=== PATIENT | female | born 1965 | race Two or more races ===

== ENCOUNTER 2017-09-06 20:30 | Inpatient (IN) | payer SELFPAY ==
[2017-09-06] MEDS ORDERED: NS 1,000 ML IV ONE (20:39)
--- NOTE | 2017-09-06 20:39 | EDPHY ---
H & P Stated Complaint: RLQ PAIN NAUSEA FEVER 3 HRS Time Seen by Provider: 09/06/17 20:38 HPI/ROS: CHIEF COMPLAINT: Acute right flank and abdominal pain HISTORY OF PRESENT ILLNESS: The patient presents the ED with a 3 hr history of severe acute right flank and abdominal pain. The patient reports she has a history of nephrolithiasis. She also has a prior history of cholecystectomy. She denies any antecedent fever, dysuria, hematuria or fever. The patient reports her pain is severe in nature. She denies additional past medical history. The pain does radiate into her right groin. REVIEW OF SYSTEMS: A comprehensive 10 point review of systems is otherwise negative aside from elements mentioned in the history of present illness. Source: Patient, Family - Personal History LMP (Females 10-55): 8-14 Days Ago Current Tetanus/Diphtheria Vaccine: Yes Current Tetanus Diphtheria and Acellular Pertussis (TDAP): Yes - Medical/Surgical History Hx Asthma: No Hx Chronic Respiratory Disease: No Hx Diabetes: No Hx Cardiac Disease: No Hx Renal Disease: No Hx Cirrhosis: No Hx Alcoholism: No Hx HIV/AIDS: No Hx Splenectomy or Spleen Trauma: No Other PMH: cholecystectomy - Social History Smoking Status: Never smoked - Physical Exam Exam: General Appearance: Alert, appears uncomfortable Eyes: Pupils equal and round no pallor or injection ENT, Mouth: Mucous membranes moist Respiratory: There are no retractions, lungs are clear to auscultation Cardiovascular: Regular rate and rhythm Gastrointestinal: Tenderness to palpation in the right lower quadrant, right CVA tenderness present Neurological: A&O, normal motor function, normal sensory exam, normal cranial nerves Skin: Warm and dry, no rashes Musculoskeletal: Neck is supple nontender Extremities: symmetrical, full range of motion Constitutional: Initial Vital Signs Temperature (C) 37.2 C 09/06/17 20:31 Heart Rate 99 09/06/17 20:31 Respiratory Rate 18 09/06/17 20:31 Blood Pressure 149/99 H 09/06/17 20:31 O2 Sat (%) 96 09/06/17 20:31 O2 Delivery Mode Room Air Allergies/Adverse Reactions: No Known Allergies Allergy (Unverified 09/06/17 20:33) Home Medications: Medication Instructions Recorded NK [No Known Home Meds] 09/06/17 Medical Decision Making - Diagnostics Imaging Results: Imaging Impressions Abdomen/Pelvis CT 09/06/17 20:45 Impression: 1. A 5-cm diameter calculus is seen associated with the right kidney, presumably at the ureteropelvic junction, and resulting in obstructive uropathy accounting for the patient's symptomatology. Additional imaging to be considered, as clinically directed. 2. Other abnormalities of the right kidney are described above. Results called and discussed with Danial Rome M.D., on September 06, 2017 at 2129. ED Course/Re-evaluation: The patient presents the ED with acute right flank pain. She also complains of some right-sided abdominal pain. The patient was noted to have tenderness to palpation in the right lower quadrant and right flank. The patient has had a prior cholecystectomy. The patient had an IV established. She received a L of normal saline. She received IV morphine and Toradol. CT scan demonstrates a large stone in the right renal pelvis possibly at the [facility]. Dr. Trace Lehman reports the patient has a normal appearing appendix. I did consult with Dr. Devlin for who is currently in the operating room who were reviewed the patient's CT scan when he is finished. I re-evaluated the patient at 11:00 p.m.. She is still complaining of flank pain. She will be admitted to the hospitalist service this evening. Differential Diagnosis: Differential diagnosis considered includes urinary tract infection, pyelonephritis, nephrolithiasis, ureterolithiasis, appendicitis - Data Points Laboratory Results: Laboratory Results 09/06/17 20:50 09/06/17 20:50 09/06/17 09/06/17 09/06/17 20:50 20:50 20:50 WBC 9.21 10^3/uL 10^3/uL (3.80-9.50) RBC 4.61 10^6/uL 10^6/uL (4.18-5.33) Hgb 14.4 g/dL g/dL (12.6-16.3) Hct 40.5 % % (38.0-47.0) MCV 87.9 fL fL (81.5-99.8) MCH 31.2 pg pg (27.9-34.1) MCHC 35.6 g/dL g/dL (32.4-36.7) RDW 12.8 % % (11.5-15.2) Plt Count 274 10^3/uL 10^3/uL (150-400) MPV 9.1 fL fL (8.7-11.7) Neut % (Auto) 79.2 % H % (39.3-74.2) Lymph % (Auto) 18.9 % % (15.0-45.0) Summers % (Auto) 0.2 % L % (4.5-13.0) Eos % (Auto) 1.1 % % (0.6-7.6) Baso % (Auto) 0.3 % % (0.3-1.7) Nucleat RBC Rel Count 0.0 % % (0.0-0.2) Absolute Neuts (auto) 7.29 10^3/uL H 10^3/uL (1.70-6.50) Absolute Lymphs (auto) 1.74 10^3/uL 10^3/uL (1.00-3.00) Absolute Monos (auto) 0.02 10^3/uL L 10^3/uL (0.30-0.80) Absolute Eos (auto) 0.10 10^3/uL 10^3/uL (0.03-0.40) Absolute Basos (auto) 0.03 10^3/uL 10^3/uL (0.02-0.10) Absolute Nucleated RBC 0.00 10^3/uL 10^3/uL (0-0.01) Immature Gran % 0.3 % % (0.0-1.1) Immature Gran # 0.03 10^3/uL 10^3/uL (0.00-0.10) Sodium 138 mEq/L mEq/L (135-145) Potassium 3.7 mEq/L mEq/L (3.5-5.2) Chloride 103 mEq/L mEq/L (97-110) Carbon Dioxide 22 mEq/l mEq/l (22-31) Anion Gap 13 mEq/L mEq/L (8-16) BUN 23 mg/dL mg/dL (7-23) Creatinine 0.9 mg/dL mg/dL (0.6-1.0) Estimated GFR > 60 Glucose 88 mg/dL mg/dL (70-100) Calcium 9.5 mg/dL mg/dL (8.5-10.4) Urine Color PALE YELLOW Urine Appearance CLEAR Urine pH 5.0 (5.0-7.5) Ur Specific [place] 1.014 (1.002-1.030) Urine Protein NEGATIVE (NEGATIVE) Urine Ketones NEGATIVE (NEGATIVE) Urine Blood 3+ H (NEGATIVE) Urine Nitrate NEGATIVE (NEGATIVE) Urine Bilirubin NEGATIVE (NEGATIVE) Urine Urobilinogen NEGATIVE EU EU (0.2-1.0) Ur Leukocyte Esterase NEGATIVE (NEGATIVE) Urine RBC 10-15 /hpf H /hpf (0-3) Urine WBC 1-3 /hpf /hpf (0-3) Ur Epithelial Cells TRACE /lpf /lpf (NONE-1+) Urine Mucus TRACE /lpf /lpf (NONE-1+) Urine Glucose NEGATIVE (NEGATIVE) Medications Given: Discontinued Medications Sodium Chloride (Ns) 1,000 mls @ 0 mls/hr IV EDNOW ONE; Wide Open PRN Reason: Protocol Stop: 09/06/17 20:40 Last Admin: 09/06/17 21:21 Dose: 1,000 mls Ketorolac Tromethamine (Toradol) 30 mg IVP EDNOW ONE Stop: 09/06/17 21:48 Last Admin: 09/06/17 21:53 Dose: 30 mg Morphine Sulfate (Morphine) 4 mg IVP EDNOW ONE Stop: 09/06/17 21:24 Last Admin: 09/06/17 21:27 Dose: 4 mg Departure - Departure Referrals: NONE *PRIMARY CARE P,. [Primary Care Provider] - As per Instructions
[2017-09-06 21:05] LABS: PLATELET COUNT 274 10^3/uL (150-400)
[2017-09-06] MEDS ORDERED: KETOROLAC 30 MG/1 ML SDV IVP ONE (21:47)
[2017-09-06] MEDS ORDERED: ONDANSETRON DISINTEGRATING 4 MG TAB PO PRN (23:05)
[2017-09-06] MEDS ORDERED: HYDROmorphONE/DILAUDID 1 MG/ML INJ IVP PRN (23:05)
[2017-09-06] MEDS ORDERED: HYDROmorphONE/DILAUDID 1 MG/ML INJ ONE (23:21)
[2017-09-06] MEDS ORDERED: ONDANSETRON 4 MG/2 ML VIAL ONE (23:24)
[2017-09-06] MEDS: ONDANSETRON 4 MG/2 ML VIAL IVP PRN (23:25)
[2017-09-07] MEDS: NS 1,000 ML IV SCH ×3 (00:31→13:03)
--- NOTE | 2017-09-07 00:33 | PDGENHP ---
History and Physical - Chief Complaint Flank pain - History of Present Illness 52 yo F w/ hx of nephrolithiasis presents with R flank pain. Patient states that the pain developed around 3 PM and has been unrelenting since. She also feels subjective fevers but denies dysuria or kumar hematuria. She has had similar pain in the past but never this severe in nature. In the ED CT scan was notable for 5 cm calculus. Urology was consulted and patient is being admitted for pain control and likely surgical intervention. History Information - Allergies/Home Medication List Allergies/Adverse Reactions: No Known Allergies Allergy (Unverified 09/06/17 20:33) Home Medications: NK [No Known Home Meds] 09/06/17 [Last Taken Unknown] I have personally reviewed and updated: family history, medical history - Past Medical History Additional medical history: Nephrolithiasis - Surgical History Reports: cholecystectomy - Family History Positive for: hypertension - Social History Smoking Status: Never smoked Review of Systems Review of Systems: ROS: 10pt was reviewed & negative except for what was stated in HPI & below Physical Exam Physical Exam: Temp Pulse Resp BP Pulse Ox 36.8 C 100 20 114/61 96 09/06/17 23:58 09/06/17 23:58 09/06/17 23:58 09/06/17 23:58 09/06/17 23:58 O2 (L/minute) 2 Constitutional: appears nourished, uncomfortable Eyes: PERRL, EOMI Ears, Nose, Mouth, Throat: moist mucous membranes, no oral mucosal ulcers Cardiovascular: regular rate and rhythym, no murmur, rub, or gallop Respiratory: no respiratory distress, clear to auscultation Gastrointestinal: normoactive bowel sounds, tenderness (RLQ) Genitourinary: other (R flank pain) Skin: warm, normal color Musculoskeletal: full muscle strength, no muscle tenderness Neurologic: AAOx3, CN II-XII Intact Lab Data & Imaging Review 09/06/17 20:50 09/06/17 20:50 WBC 9.21 10^3/uL (3.80-9.50) 09/06/17 20:50 RBC 4.61 10^6/uL (4.18-5.33) 09/06/17 20:50 Hgb 14.4 g/dL (12.6-16.3) 09/06/17 20:50 Hct 40.5 % (38.0-47.0) 09/06/17 20:50 MCV 87.9 fL (81.5-99.8) 09/06/17 20:50 MCH 31.2 pg (27.9-34.1) 09/06/17 20:50 MCHC 35.6 g/dL (32.4-36.7) 09/06/17 20:50 RDW 12.8 % (11.5-15.2) 09/06/17 20:50 Plt Count 274 10^3/uL (150-400) 09/06/17 20:50 MPV 9.1 fL (8.7-11.7) 09/06/17 20:50 Neut % (Auto) 79.2 % (39.3-74.2) H 09/06/17 20:50 Lymph % (Auto) 18.9 % (15.0-45.0) 09/06/17 20:50 [place] % (Auto) 0.2 % (4.5-13.0) L 09/06/17 20:50 Eos % (Auto) 1.1 % (0.6-7.6) 09/06/17 20:50 Baso % (Auto) 0.3 % (0.3-1.7) 09/06/17 20:50 Nucleat RBC Rel Count 0.0 % (0.0-0.2) 09/06/17 20:50 Absolute Neuts (auto) 7.29 10^3/uL (1.70-6.50) H 09/06/17 20:50 Absolute Lymphs (auto) 1.74 10^3/uL (1.00-3.00) 09/06/17 20:50 Absolute Monos (auto) 0.02 10^3/uL (0.30-0.80) L 09/06/17 20:50 Absolute Eos (auto) 0.10 10^3/uL (0.03-0.40) 09/06/17 20:50 Absolute Basos (auto) 0.03 10^3/uL (0.02-0.10) 09/06/17 20:50 Absolute Nucleated RBC 0.00 10^3/uL (0-0.01) 09/06/17 20:50 Immature Gran % 0.3 % (0.0-1.1) 09/06/17 20:50 Immature Gran # 0.03 10^3/uL (0.00-0.10) 09/06/17 20:50 Sodium 138 mEq/L (135-145) 09/06/17 20:50 Potassium 3.7 mEq/L (3.5-5.2) 09/06/17 20:50 Chloride 103 mEq/L (97-110) 09/06/17 20:50 Carbon Dioxide 22 mEq/l (22-31) 09/06/17 20:50 Anion Gap 13 mEq/L (8-16) 09/06/17 20:50 BUN 23 mg/dL (7-23) 09/06/17 20:50 Creatinine 0.9 mg/dL (0.6-1.0) 09/06/17 20:50 Estimated GFR > 60 09/06/17 20:50 Glucose 88 mg/dL (70-100) 09/06/17 20:50 Calcium 9.5 mg/dL (8.5-10.4) 09/06/17 20:50 Urine Color PALE YELLOW 09/06/17 20:50 Urine Appearance CLEAR 09/06/17 20:50 Urine pH 5.0 (5.0-7.5) 09/06/17 20:50 Ur Specific [place] 1.014 (1.002-1.030) 09/06/17 20:50 Urine Protein NEGATIVE (NEGATIVE) 09/06/17 20:50 Urine Ketones NEGATIVE (NEGATIVE) 09/06/17 20:50 Urine Blood 3+ (NEGATIVE) H 09/06/17 20:50 Urine Nitrate NEGATIVE (NEGATIVE) 09/06/17 20:50 Urine Bilirubin NEGATIVE (NEGATIVE) 09/06/17 20:50 Urine Urobilinogen NEGATIVE EU (0.2-1.0) 09/06/17 20:50 Ur Leukocyte Esterase NEGATIVE (NEGATIVE) 09/06/17 20:50 Urine RBC 10-15 /hpf (0-3) H 09/06/17 20:50 Urine WBC 1-3 /hpf (0-3) 09/06/17 20:50 Ur Epithelial Cells TRACE /lpf (NONE-1+) 09/06/17 20:50 Urine Mucus TRACE /lpf (NONE-1+) 09/06/17 20:50 Urine Glucose NEGATIVE (NEGATIVE) 09/06/17 20:50 Imaging Review: Imaging Impressions Abdomen/Pelvis CT 09/06/17 20:45 Impression: 1. A 5-cm diameter calculus is seen associated with the right kidney, presumably at the ureteropelvic junction, and resulting in obstructive uropathy accounting for the patient's symptomatology. Additional imaging to be considered, as clinically directed. 2. Other abnormalities of the right kidney are described above. Results called and discussed with Danial Rome M.D., on September 06, 2017 at 2129. Assessment & Plan Assessment: 52 yo F presents with nephrolithiasis and obstructive uropathy. Plan: 1. Nephrolithiasis - Per CT, 5-cm diameter calculus is seen associated with the right kidney, presumably at the ureteropelvic junction, and resulting in obstructive uropathy accounting for the patient's symptomatology. Patient complaining of subjective fevers but no objective data consistent with infection thus far. - mIVF, pain control - Will observe off of antibiotics, low threshold to initiate if signs of infection arise - Urology consulted, appreciate assistance - Will maintain NPO pending surgical evaluation Diet - NPO Code - Full Ppx - SCDs Dispo - Admit to observation status
[2017-09-07] MEDS: HYDROmorphONE/DILAUDID 1 MG/ML INJ IVP PRN ×2 (01:03→05:36)
[2017-09-07 06:06] LABS: PLATELET COUNT 244 10^3/uL (150-400)
[2017-09-07] MEDS: ACETAMINOPHEN 325 MG TAB PO PRN (07:45)
[2017-09-07] MEDS: HYDROmorphONE/DILAUDID 2 MG TAB PO PRN ×2 (07:46→15:11)
[2017-09-07] MEDS ORDERED: FLU VACC QS 2017-18 (3YR+)/PF 0.5 ML SYR (FLUARIX QUAD) IM ONE (11:05)
[2017-09-07] MEDS ORDERED: KETOROLAC 15 MG/1 ML SDV IVP ONE (12:47)
--- NOTE | 2017-09-07 12:51 | HOSPPROG ---
Hospitalist Progress Note Assessment/Plan: 52-year-old female admitted with right flank pain and found to have a 5 mm right ureteral vesicle junction stone. She is continuing to have pain. Urine shows red cells without white cells and she is afebrile. She increased her white count from 9000-01200 without a fever which is unexplained. She continues to have abdominal pain. Case has been discussed with Urology, , who will see the patient. -Right renal nephrolithiasis at the ureterovesical junction. Pain has been persistent. Patient placed on Flomax Toradol -leukocytosis which is unexplained without a fever: The CBC will be repeated and the patient was given 1 g of Rocephin along with the urine culture and blood cultures. She does not meet sepsis criteria -pain control Plan: Urology will see later today. Subjective: Reports persistent pain in the right flank. No fever cough shortness of breath or chest pain Objective: Vital Signs Temp Pulse Resp BP Pulse Ox 37.3 C 99 20 111/74 96 09/07/17 12:00 09/07/17 12:00 09/07/17 12:00 09/07/17 12:00 09/07/17 12:00 Laboratory Results 09/07/17 05:16 09/07/17 05:16 09/06/17 09/07/17 09/08/17 05:59 05:59 05:59 Intake Total 1774 96 Output Total 400 350 Balance 1374 -254 - Time Spent With Patient Time Spent with Patient: greater than 35 minutes Time Spent with Patient: Greater than 35 minutes spent on this patients care, greater than 50% of time spent counseling, educating, and coordinating care regarding the above mentioned plan. - Pending Discharge Pending Discharge Within 24 Hours: Yes Pending Discharge Date: 09/13/17 Pending Discharge Time: 11:00 - Physical Exam Constitutional: no apparent distress Eyes: PERRL, anicteric sclera Ears, Nose, Mouth, Throat: moist mucous membranes, hearing normal Cardiovascular: regular rate and rhythym, no murmur, rub, or gallop Respiratory: no respiratory distress, no rales or rhonchi, clear to auscultation Gastrointestinal: normoactive bowel sounds, other (Right flank pain with right- sided abdominal pain on deep palpation without rebound or palpable mass) Genitourinary: no bladder fullness Skin: warm Musculoskeletal: full muscle strength Neurologic: AAOx3, CN II-XII Intact Psychiatric: interacting appropriately
[2017-09-07] MEDS: TAMSULOSIN HCL 0.4 MG CAP PO SCH (12:54)
--- NOTE | 2017-09-07 16:08 | ASMTCMCOM ---
CM Note CM Note Notes: Pt in significant pain from 5mm ureter stone, waiting for urology consult. Anticipate pt will be independent once resolved and dc home w/family support. CM available for any changes. DC Plan: Home independent Date Signed: 09/07/2017 04:07 PM Electronically Signed By:Linnea Juárez RN
[2017-09-07 16:40] LABS: PLATELET COUNT 210 10^3/uL (150-400)
[2017-09-07] MEDS: KETOROLAC 15 MG/1 ML SDV IVP SCH (17:09)
[2017-09-07] MEDS ORDERED: MIDAZOLAM 2 MG/2 ML VIAL IVP PRN (17:51)
[2017-09-07] MEDS ORDERED: MEPERIDINE 25 MG/ML SYR IVP PRN (17:51)
[2017-09-07] MEDS ORDERED: PROTAMINE SULFATE 50 MG/5 ML VIAL IVP PRN (17:51)
[2017-09-07] MEDS ORDERED: FLUMAZENIL 0.5 MG/5 ML MDV IVP PRN (17:51)
[2017-09-07] MEDS ORDERED: GLUCAGON HCL 1 MG VIAL IVP PRN (17:51)
[2017-09-07] MEDS ORDERED: ALTEPLASE 2 MG VIAL IVP PRN (17:51)
[2017-09-07] MEDS ORDERED: HEPARIN 10,000 UNIT/10 ML MDV IVP PRN (17:51)
[2017-09-07] MEDS ORDERED: NALOXONE HCL 0.4 MG/ML INJ IVP PRN (17:51)
[2017-09-07] MEDS ORDERED: NS 1,000 ML IV SCH (18:00)
[2017-09-07 18:18] LABS: INR 1.46 (0.83-1.16); PROTIME(PATIENT) 17.9 SEC (12.0-15.0)
[2017-09-07] MEDS ORDERED: CIPROFLOXACIN 400 MG/DEXTROSE 200 ML IV ONE (18:30)
[2017-09-07] MEDS ORDERED: fentaNYL 100 MCG/2 ML INJ ONE ×2 (19:20→21:39)
[2017-09-07] MEDS ORDERED: MIDAZOLAM 2 MG/2 ML VIAL ONE (19:20)
--- NOTE | 2017-09-07 19:21 | PDPROPOC ---
Sedation Plan of Care Sedation Plan of Care: vital signs stable, mental status noted, patient educated of risks, benefits, alternatives, patient can tolerate sedation ASA Classification: ASA 3 Planned drugs: fentanyl, midazolam Mallampati Score: Class 2 Mallampati Reference Image: Patient passed 3-3-2 rule?: Yes
[2017-09-07] MEDS ORDERED: IOPAMIDOL (ISOVUE-300) 100 ML BTL ONE (19:37)
[2017-09-07] MEDS ORDERED: MEPERIDINE 25 MG/ML SYR ONE (20:55)
--- NOTE | 2017-09-07 21:25 | PDRADPN ---
Radiology Procedure Note Date of Procedure: 09/07/17 Radiologist: Jorge Monsivais Pre-op Diagnosis: Obstructing stone Post-op Diagnosis: Same Indication: Obstructing stone, elevated WBC count, concern for developing pyonephrosis Procedure: Right nephrostomy tube placement Finding(s): See dictated report Inf/Abcess present in the surg proc area at time of surgery?: Yes Depth: Organ Space (Retroperitoneal) EBL: Minimal Complications: No immediate Drains: Nephrostomy (10-Fr pigtail nephrostomy) Specimen(s): None taken
[2017-09-07] MEDS ORDERED: ONDANSETRON 4 MG/2 ML VIAL ONE (21:30)
[2017-09-07] MEDS: ONDANSETRON 4 MG/2 ML VIAL IVP PRN (21:32)
[2017-09-07] MEDS ORDERED: ONDANSETRON 4 MG/2 ML VIAL IVP PRN (21:40)
[2017-09-07] MEDS ORDERED: HYDROmorphONE/DILAUDID 1 MG/ML INJ IVP PRN (21:40)
[2017-09-07] MEDS: fentaNYL 100 MCG/2 ML INJ IVP PRN ×4 (21:41→21:58)
[2017-09-08] MEDS: KETOROLAC 15 MG/1 ML SDV IVP SCH ×5 (00:32→23:57)
[2017-09-08] MEDS: NS 1,000 ML IV SCH ×4 (00:32→20:02)
--- NOTE | 2017-09-08 08:04 | HOSPPROG ---
Hospitalist Progress Note Assessment/Plan: 52-year-old female admitted with right flank pain and found to have a 5 cm right renal pelvis stone with obstruction. She is continuing to have pain. -Right renal nephrolithiasis at the ureterovesical junction. Pain has been persistent. Patient placed on Flomax Toradol -leukocytosis which is unexplained without a fever: The CBC will be repeated and the patient was given 1 g of Rocephin along with the urine culture and blood cultures. She does not meet sepsis criteria -pain control Plan: Urology will see later today. Subjective: roports pain Objective: Vital Signs Temp Pulse Resp BP Pulse Ox 36.8 C 88 18 124/69 H 93 09/08/17 04:00 09/08/17 04:00 09/08/17 04:00 09/08/17 04:00 09/08/17 06:02 Laboratory Results 09/07/17 16:25 09/07/17 05:16 09/07/17 09/08/17 09/09/17 05:59 05:59 05:59 Intake Total 1774 3289 Output Total 400 760 Balance 1374 2529 PT 17.9 SEC (12.0-15.0) H 09/07/17 18:00 INR 1.46 (0.83-1.16) H 09/07/17 18:00 Selected Entries 09/08/17 00:27 Temperature (C) 37.3 C Laboratory Tests 09/06/17 09/07/17 09/07/17 20:50 05:16 16:25 WBC 9.21 18.60 H D 24.94 H Absolute Neuts (auto) 7.29 H 17.27 H INR 09/07/17 18:00 WBC Absolute Neuts (auto) INR 1.46 H - Time Spent With Patient Time Spent with Patient: greater than 35 minutes Time Spent with Patient: Greater than 35 minutes spent on this patients care, greater than 50% of time spent counseling, educating, and coordinating care regarding the above mentioned plan. - Pending Discharge Pending Discharge Within 24 Hours: No Pending Discharge Within 48 Hours: No - Physical Exam Constitutional: other (in pain) Eyes: PERRL Ears, Nose, Mouth, Throat: moist mucous membranes Cardiovascular: regular rate and rhythym, no murmur, rub, or gallop Respiratory: no respiratory distress, no rales or rhonchi, reduced air movement Gastrointestinal: normoactive bowel sounds, soft, non-tender abdomen Genitourinary: no bladder fullness Musculoskeletal: other (right CVA tender, rights side of abdomen tender without rebound or guarding, no mass) Neurologic: AAOx3, CN II-XII Intact Psychiatric: interacting appropriately
[2017-09-08] MEDS: TAMSULOSIN HCL 0.4 MG CAP PO SCH (08:08)
[2017-09-08] MEDS: ACETAMINOPHEN 325 MG TAB PO PRN (15:36)
--- NOTE | 2017-09-08 16:41 | HOSPPROG ---
Hospitalist Progress Note Assessment/Plan: 52-year-old female admitted with right flank pain and found to have a 5 cm right renal pelvis stone with obstruction. She underwent nephrostomy tube placement yesterday evening and has had significant improvement in her pain. -Right renal nephrolithiasis at the ureterovesical junction. Pain much relieved by the placement of nephrostomy tube. She is currently awaiting further urologic evaluation for the removal of this 5 cm stone. -leukocytosis which is unexplained without a fever: The CBC will be repeated and the patient was given 1 g of Rocephin along with the urine culture and blood cultures. She does not meet sepsis criteria -pain control Plan: Urology will further evaluate for the removal of the stone. Subjective: Reports she is feeling much improved post nephrostomy tube placement with decrease in her pain she is currently hungry without nausea or vomiting. She is moving gas Objective: Vital Signs Temp Pulse Resp BP Pulse Ox 36.9 C 94 16 128/71 H 90 L 09/08/17 15:15 09/08/17 15:15 09/08/17 15:15 09/08/17 15:15 09/08/17 15:15 Laboratory Results 09/07/17 16:25 09/07/17 05:16 09/07/17 09/08/17 09/09/17 05:59 05:59 05:59 Intake Total 1774 3289 Output Total 400 760 550 Balance 1374 2529 -550 PT 17.9 SEC (12.0-15.0) H 09/07/17 18:00 INR 1.46 (0.83-1.16) H 09/07/17 18:00 - Time Spent With Patient Time Spent with Patient: greater than 35 minutes Time Spent with Patient: Greater than 35 minutes spent on this patients care, greater than 50% of time spent counseling, educating, and coordinating care regarding the above mentioned plan. - Pending Discharge Pending Discharge Within 24 Hours: No Pending Discharge Within 48 Hours: Yes Pending Discharge Date: 09/10/17 Pending Discharge Time: 11:00 - Physical Exam Constitutional: no apparent distress, appears nourished Eyes: PERRL, anicteric sclera Ears, Nose, Mouth, Throat: moist mucous membranes, hearing normal Cardiovascular: regular rate and rhythym, no murmur, rub, or gallop Respiratory: no respiratory distress, no rales or rhonchi, clear to auscultation Gastrointestinal: normoactive bowel sounds, tenderness (Tenderness is noted on the right flank in the right side of her abdomen on deep palpitation patient but it is much improved from her previous exam before the placement of the nephrostomy tube.) Genitourinary: no bladder fullness Skin: warm Musculoskeletal: full muscle strength Neurologic: AAOx3, CN II-XII Intact, other (Primarily Serbian speaking. She does understand some angulation we were able to act effectively communicate)
--- NOTE | 2017-09-08 17:03 | PDMN ---
Medical Necessity Medical necessity: Pt meets INPT criteria per MD as of 09/08/17 and MCG M-320 Renal Colic and Kidney Stones (LOS >2 MN for ongoing eval/mgmt of 5 cm renal stone s/p placement of nephrostomy tube; with leukocytosis, urology eval pending ).
[2017-09-08] MEDS ORDERED: SUMAtriptan 5 MG/SPRAY SPRAY NS ONE (18:30)
[2017-09-09] MEDS: NS 1,000 ML IV SCH (02:24)
[2017-09-09] MEDS: KETOROLAC 15 MG/1 ML SDV IVP SCH ×4 (06:02→23:06)
[2017-09-09] MEDS: TAMSULOSIN HCL 0.4 MG CAP PO SCH (09:17)
--- NOTE | 2017-09-09 10:23 | HOSPPROG ---
Hospitalist Progress Note Assessment/Plan: 52-year-old female admitted with right flank pain and found to have a 5 cm right renal pelvis stone with obstruction. She underwent nephrostomy tube placement yesterday evening and has had significant improvement in her pain. Today of sensitivities on the or organism from her urine are still pending. It is clear she has a right renal calculus that is likely infected and sensitivities are not necessary to direct and the biotic care. -Right renal nephrolithiasis at the ureterovesical junction. Pain much relieved by the placement of nephrostomy tube. Urology will evaluate as an outpatient as it is unclear how old this 5 cm stone should be approached. This been discussed with Urology. -leukocytosis which is unexplained without a fever: The CBC will be repeated and the patient was given 1 g of Rocephin along with the urine culture and blood cultures. Urine culture is growing a lactose production sampler of 2 different colonies. Sensitivities are pending and should be back on 09/10. -pain control: Currently in good control. Plan: Urology will further evaluate for the removal of the stone. -awaiting urine culture sensitivities for antibiotic specificity. Discussed through an education officer with the patient and her family. All questions were answered. Time: 40 min Subjective: Reports her pain is improved. She has some appetite. No nausea or vomiting. Objective: Vital Signs Temp Pulse Resp BP Pulse Ox 36.8 C 88 18 136/75 H 97 09/09/17 07:38 09/09/17 04:00 09/09/17 07:38 09/09/17 07:38 09/09/17 07:38 09/08/17 09/09/17 09/10/17 05:59 05:59 05:59 Intake Total 5998 Output Total 750 175 Balance 5248 -175 PT 17.9 SEC (12.0-15.0) H 09/07/17 18:00 INR 1.46 (0.83-1.16) H 09/07/17 18:00 - Time Spent With Patient Time Spent with Patient: greater than 35 minutes Time Spent with Patient: Greater than 35 minutes spent on this patients care, greater than 50% of time spent counseling, educating, and coordinating care regarding the above mentioned plan. - Pending Discharge Pending Discharge Within 24 Hours: Yes Pending Discharge Date: 09/11/17 Pending Discharge Time: 11:00 - Physical Exam Constitutional: no apparent distress Eyes: PERRL, anicteric sclera Ears, Nose, Mouth, Throat: moist mucous membranes, hearing normal Cardiovascular: regular rate and rhythym, no murmur, rub, or gallop Respiratory: no respiratory distress, no rales or rhonchi, clear to auscultation Gastrointestinal: normoactive bowel sounds, other (Right nephrostomy tube is noted without erythema there is very mild tenderness around the insertion site no hematuria is noted.) Skin: warm Musculoskeletal: full muscle strength Neurologic: AAOx3, CN II-XII Intact
[2017-09-09 11:28] VITALS: RESP 16
[2017-09-09 11:34] LABS: PLATELET COUNT 138 10^3/uL (150-400)
[2017-09-10 05:21] LABS: PLATELET COUNT 143 10^3/uL (150-400)
[2017-09-10] MEDS: KETOROLAC 15 MG/1 ML SDV IVP SCH (05:21)
[2017-09-10 07:18] VITALS: BP 125/62; PULSE 69; TEMP 98.1; O2SAT 92
[2017-09-10] MEDS: TAMSULOSIN HCL 0.4 MG CAP PO SCH (08:54)
--- NOTE | 2017-09-10 09:58 | ASMTCMCOM ---
CM Note CM Note Notes: Patient to dc home today and follow up outpatient with urology. Independent. CM available should needs arise. Date Signed: 09/10/2017 09:58 AM Electronically Signed By:Corazon Ty RN
--- NOTE | 2017-09-10 10:33 | ASMTCMCOM ---
CM Note CM Note Notes: CM will follow up with linnea to urologist in am to ensure patient seen [facility] as outpatient . Collin Wang's number is [phone]. Date Signed: 09/10/2017 10:32 AM Electronically Signed By:Corazon Ty RN
--- NOTE | 2017-09-10 17:00 | ASDISCHSUM ---
Discharge Information Plan Status:Home with No Needs Medically Cleared to Leave:09/09/2017 Discharge Date:09/10/2017 11:07 AM CM D/C Disposition:Home, Routine, Self-Care ADT D/C Disposition:Home, Routine, Self-Care Projected Discharge Date:09/10/2017 11:07 AM Transportation at D/C:Family Discharge Delay Reason: Follow-Up Date:09/10/2017 11:07 AM Discharge Slot: Final Diagnosis: Placement Information Patient Contact Information Contact Name:DANIELLE Relationship:Other Address:[address] [place] [address] Work Phone: City:[place] Alternate Phone: [facility]/Zip Code:[place] [address] Email: Financial Information Financial Class:Self-Pay Primary Plan Desc:SELF PAY Primary Plan Number: Secondary Plan Desc: Secondary Plan Number: Assessment Information [facility] CM Progress Note CM Note CM Note Notes: Pt in significant pain from 5mm ureter stone, waiting for urology consult. Anticipate pt will be independent once resolved and dc home w/family support. CM available for any changes. DC Plan: Home independent Date Signed: 09/07/2017 04:07 PM Electronically Signed By:Linnea Juárez RN [facility] CM Progress Note CM Note CM Note Notes: Patient to dc home today and follow up outpatient with urology. Independent. CM available should needs arise. Date Signed: 09/10/2017 09:58 AM Electronically Signed By:Corazon Ty RN [facility] CM Progress Note CM Note CM Note Notes: CM will follow up with linnea to urologist in am to ensure patient seen [facility] as outpatient . Collin Wang's number is [phone]. Date Signed: 09/10/2017 10:32 AM Electronically Signed By:Corazon Ty RN Intervention Information Intervention Type:*Incorrect Registration Date of Service:09/06/2017 03:53 AM Patient Type:Inpatient Staff Member:MAJO Dixon, Katie Hours: Discipline: Severity: Comment:
--- NOTE | 2017-09-10 18:02 | GDS ---
[f rep st] DISCHARGE SUMMARY DIAGNOSES: New and acute diagnoses: 1. Right renal nephrolithiasis, 5 cm renal pelvis stone with obstruction. 2. Acute leukocytosis. 3. Pyelonephritis, probable with 2 colonies of Escherichia coli, both sensitive to Levaquin. CONSULTATIONS: With urology and interventional radiology. PROCEDURES: A right nephrostomy tube was placed without difficulty on September 07. HOSPITAL COURSE: A 52-year-old female, presents with a complaint of right-sided abdominal and back p ain. She reported the pain developed a few hours prior to admission and was unrelenting. She denied dysuria or hematuria. The CT scan revealed a 5 cm diameter calculus in the renal pelvis obstructing the outflow into the ureter. The nephrostomy tube was placed and her pain was much improved. She g rew 2 colonies of E coli, both sensitive to Levaquin and ultimately will be discharged on Levaquin. DISCHARGE MEDICATIONS: New medication is Tylenol for pain, Flomax 0.4 mg daily, and Levaquin 750 mg daily. Discontinue her ibuprofen. PLAN: The patient will follow up with Dr. Danay Sebastian in the next 2-5 days. I have spoken with Dr. Sebastian and arranged for the followup. The patient is Maltese-speaking only and this has all been communicated through an retail financial analyst to the patient. Her family was there and all questions were answered. TIME OF DICTATION: Fifty minutes, greater than 50% in counseling and coordinating care. /[id number]/MODL
== END 2017-09-10 11:07 | disposition home or self-care (01) | DRG 660 ==
LOC: INTOOBSV 23:00 → F3E 09-07 00:15 → OBSVTOIN 09-08 16:50
PROVIDERS: ADMIT Student in an Organized Health Care Education/Training Program; ATTEND Student in an Organized Health Care Education/Training Program
PROC: 0T133JD Bypass Right Kidney Pelvis to Cutaneous with Synthetic Substitute, Percutaneous Approach (ICD-10-PCS; principal; 2017-09-07 18:00)
DX: N13.1 Hydronephrosis with ureteral stricture, not elsewhere classified (principal); N10 Acute pyelonephritis; B96.20 Unspecified Escherichia coli [E. coli] as the cause of diseases classified elsewhere; Z23 Encounter for immunization
CPT/HCPCS: C1729; C1758; C1769; G0008; G0378; J0696; J0744; J1170; J1644; J1885; J2250; J2405; J3010; Q9967

== ENCOUNTER → 2017-10-13 | Day surgery (SDC) | payer OTHER ==
[~2017-10-13] MED LIST: IOPAMIDOL (ISOVUE-300) 100 ML BTL ONE
== END | disposition home or self-care (01) ==
LOC: FIMAGING 13:51
PROVIDERS: ATTEND Obstetrics & Gynecology
PROC: 0T9330Z Drainage of Right Kidney Pelvis with Drainage Device, Percutaneous Approach (ICD-10-PCS; principal; 2017-10-13)
PROC: BT16YZZ Fluoroscopy of Right Ureter using Other Contrast (ICD-10-PCS; principal; 2017-10-13)
DX: Z43.6 Encounter for attention to other artificial openings of urinary tract (principal); N20.1 Calculus of ureter
CPT/HCPCS: C1729; C1769; Q9967

== ENCOUNTER → 2017-11-13 | Outpatient (CLI) | payer OTHER | LOC: BMCIMAGING 12:01 | PROVIDERS: ATTEND Urology | DX: N20.0 Calculus of kidney (principal); Z96.0 Presence of urogenital implants ==

== ENCOUNTER 2017-11-20 07:24 | Day surgery (SDC) | payer OTHER ==
[2017-11-20] MEDS ORDERED: AMPICILLIN/SULBACTAM 3 GM VIAL IV ONE (09:00)
[2017-11-20] MEDS ORDERED: VANCOMYCIN HCL/NORMAL SALINE 250 ML IV ONE (09:30)
[2017-11-20] MEDS ORDERED: levOFLOXACIN 500 MG/DEXTROSE 100 ML IV ONE (09:30)
[2017-11-20] MEDS ORDERED: IOPAMIDOL (ISOVUE-300) 100 ML BTL ONE (10:13)
[2017-11-20] MEDS ORDERED: LIDOCAINE 1% 300 MG/30 ML SDV ONE (10:13)
[2017-11-20 13:43] VITALS: BP 125/70; TEMP 99.8; O2SAT 94
== END 2017-11-20 13:45 | disposition home or self-care (01) ==
LOC: FIMAGING 07:24
PROVIDERS: ATTEND Urology
PROC: 0TW530Z Revision of Drainage Device in Kidney, Percutaneous Approach (ICD-10-PCS; principal; 2017-11-20)
PROC: 0T9630Z Drainage of Right Ureter with Drainage Device, Percutaneous Approach (ICD-10-PCS; principal; 2017-11-20)
DX: N20.0 Calculus of kidney (principal)
CPT/HCPCS: C1729; C1769; J0295; J1644; J1956; J3370; Q9967

== ENCOUNTER → 2018-05-14 | Outpatient (CLI) | payer OTHER | LOC: FIMAGING 16:17 | PROVIDERS: ATTEND Urology | DX: N28.1 Cyst of kidney, acquired (principal); Z98.890 Other specified postprocedural states ==

== ENCOUNTER → 2018-06-18 | Outpatient (CLI) | payer OTHER | LOC: BMCIMAGING 11:05 | PROVIDERS: ATTEND Urology | DX: Z13.89 Encounter for screening for other disorder (principal); Z87.442 Personal history of urinary calculi ==